=== PATIENT | female | born 1950 | race Caucasian/White ===

== ENCOUNTER 2022-04-16 10:18 | Outpatient (CLI) | payer MEDICARE | END 2022-04-16 10:19 | disposition home or self-care (01) | LOC: LABBT 10:18 | PROVIDERS: ATTEND Specialist | DX: Z01.810 Encounter for preprocedural cardiovascular examination (principal); K64.8 Other hemorrhoids | CPT/HCPCS: 93005; 93010 ==

== ENCOUNTER 2022-04-21 06:08 | Day surgery (SDC) | payer MEDICARE ==
[2022-04-17 14:51] VITALS: BMI 28.3
[2022-04-21] MEDS ORDERED: Bupivacaine 0.25% HCL 30 ML VIAL ONE (06:40)
[2022-04-21] MEDS ORDERED: EPINEPHrine 1 MG/ML AMP ONE (06:40)
[2022-04-21] MEDS ORDERED: Acetaminophen 500 MG TAB ONE ×2 (06:54→06:55)
[2022-04-21] MEDS ORDERED: traMADol HCl 50 MG TAB ONE ×2 (06:54→09:36)
[2022-04-21] MEDS ORDERED: Ketorolac Tromethamine 30 MG/ML VIAL ONE (06:55)
[2022-04-21] MEDS ORDERED: fentaNYL Citrate/PF 100 MCG/2 ML SYRINGE ONE (07:01)
[2022-04-21] MEDS ORDERED: Midazolam HCl 2 mg/2 ml Vial ONE (07:03)
[2022-04-21] MEDS ORDERED: CEFAZOLIN 2 GM VIAL ONE (07:26)
[2022-04-21] MEDS ORDERED: Sodium Chloride 0.9% 100 ML ONE (07:26)
[2022-04-21] MEDS ORDERED: PROPOFOL 200 MG/20 ML VIAL ONE (07:38)
[2022-04-21] MEDS ORDERED: Rocuronium Bromide 10 MG/ML (10ML VIAL) ONE (07:38)
[2022-04-21] MEDS ORDERED: Dexamethasone 20 MG/5 ML VIAL ONE (07:38)
[2022-04-21] MEDS ORDERED: Glycopyrrolate 0.2 MG/ML 5 ML SYRINGE ONE (07:38)
[2022-04-21] MEDS ORDERED: Ondansetron PF 4 MG/2 ML Vial ONE (07:38)
[2022-04-21] MEDS ORDERED: NEOSTIGMINE 3 MG/3 ML SYR 3 MG/3 ML SYRINGE ONE (07:38)
== END 2022-04-21 10:15 | disposition home or self-care (01) ==
LOC: SDC 06:08
PROVIDERS: ATTEND Specialist
PROC: 06BY3ZC Excision of Hemorrhoidal Plexus, Percutaneous Approach (ICD-10-PCS; principal; 2022-04-21)
DX: K64.8 Other hemorrhoids (principal); E11.9 Type 2 diabetes mellitus without complications; I10 Essential (primary) hypertension; E03.9 Hypothyroidism, unspecified; E78.5 Hyperlipidemia, unspecified; I48.91 Unspecified atrial fibrillation; Z86.16 Personal history of COVID-19; Z79.01 Long term (current) use of anticoagulants; Z79.84 Long term (current) use of oral hypoglycemic drugs; Z79.890 Hormone replacement therapy; Z79.899 Other long term (current) drug therapy; Z88.8 Allergy status to other drugs, medicaments and biological substances
CPT/HCPCS: J0171; J0690; J1100; J1885; J2250; J2405; J2704; J3490; S0020